=== PATIENT | female | born 1995 | race American Indian/Alaskan Native ===

== ENCOUNTER 2016-10-17 15:17 | Emergency (ER) | payer SELFPAY ==
[2016-10-17] MEDS ORDERED: ZOFRAN IM ONE (15:58)
--- NOTE | 2016-10-17 16:03 | Emergency Department Report ---
Chief Complaint: Abdominal Pain Stated Complaint: VOMITING/FEVER/BODYACHES Time Seen by Provider: 10/17/16 15:59 - HPI History of Present Illness: Patient here reports nausea and vomitting started today. She reports starting her menstrual cycle today and having abdominal pain 07/09. LMP 10/16/2016.Pain to abdominal and lower back cramping. Denies diarrhea. Denies fever but reports chills. Denies any urinary burning or urgency but reports frequency. - ROS Review of Systems: All systems are negative unless stated in Hpi above - Exam Vital Signs: Vital Signs 10/17/16 15:49 Temperature 97.5 F L Pulse Rate 56 L Respiratory 22 Rate Blood Pressure 135/96 O2 Sat by Pulse 100 Oximetry Physical Exam: General: This is a 21-year-old female that is nontoxic in appearance. Abdomen: Tender to palpate in lower abdominal quadrant with positive guarding. Normal bowel sounds. MSE screening note: Focused history and physical exam performed. Due to findings the following was ordered:see mdm ED Medical Decision Making - Medical Decision Making Medical decision making: Patient seen by provider in triage area. Appropriate protocol activated and patient to main ED to be seen by physician. ED Disposition for MSE Condition: Stable Instructions: Abdominal Pain (ED)
[2016-10-17 16:17] LABS: Basophils % (Auto) 0.7 % (0.0-1.8); Eosinophils % (Auto) 0.3 % (0.0-4.3); Hematocrit 41.9 % (30.3-42.9); Hemoglobin 13.8 gm/dl (10.1-14.3); Mean Corpuscular HGB Conc 33 % (30-34); Mean Corpuscular Hemoglobin 29 pg (28-32); Mean Corpuscular Volume 88 fl (79-97); Platelet Count 139 K/mm3 (140-440); Red Blood Count 4.76 M/mm3 (3.65-5.03); Red Cell Distribution Width 15.7 % (13.2-15.2); White Blood Count 5.3 K/mm3 (4.5-11.0)
[2016-10-17 16:33] LABS: Alanine Aminotransferase 12 units/L (7-56); Albumin/Globulin Ratio 1.2 %; Alkaline Phosphatase 42 units/L (35-129); Amylase 81 units/L (27-131); Anion Gap 20 mmol/L; Bilirubin,Total 0.6 mg/dL (0.1-1.2); Blood Urea Nitrogen 10 mg/dL (7-17); Calcium 8.9 mg/dL (8.4-10.2); Carbon Dioxide 21 mmol/L (22-30); Chloride 105.5 mmol/L (98-107); Glucose 92 mg/dL (65-100); Lipase 27 units/L (13-60); Sodium 142 mmol/L (137-145); Total Protein 7.3 g/dL (6.3-8.2)
[2016-10-17 16:35] LABS: Bilirubin,Direct < 0.2 mg/dL (0-0.2); Bilirubin,Indirect 0.4 mg/dL
[2016-10-17 17:55] LABS: Bilirubin,Urine NEG (Negative); Blood,Urine LG (Negative); Ketones,Urine 20 mg/dL (Negative); Leukocyte Esterase,Urine NEG (Negative); Mucus,Urine FEW /HPF; Nitrite,Urine NEG (Negative); Protein,Urine <15 mg/dL mg/dL (Negative); Urobilinogen,Urine < 2.0 mg/dL (<2.0); WBC,Urine < 1.0 /HPF (0.0-6.0)
[2016-10-18] MEDS ORDERED: TYLENOL PO ONE (01:23)
[2016-10-18] MEDS ORDERED: MOTRIN PO ONE (06:34)
[2016-10-18] MEDS ORDERED: NACL 0.9% 1000 ML 1,000 ML IV ONE (07:51)
[2016-10-18] MEDS ORDERED: ZOFRAN IV ONE (07:51)
[2016-10-18] MEDS ORDERED: MORPHINE IV ONE (07:51)
[2016-10-18] MEDS ORDERED: MORPHINE ONE (07:57)
--- NOTE | 2016-10-18 07:57 | Emergency Department Report ---
HPI - General Chief Complaint: Abdominal Pain Time Seen by Provider: 10/17/16 16:09 - HPI HPI: Room 10 The patient is a 21-year-old female presenting with a chief complaint of pelvic cramping. When asked why she came to the emergency department patient states "my cycle made me come." The patient states since 2013 every month she has had severe pelvic pain headaches nausea vomiting with her cycles. The patient states every month during her cycle these symptoms present. 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 The patient states this morning her normal symptoms began which included nausea vomiting or abdominal pain and back pain. The patient gives her pain a score of 12/10 Location: [see above] Duration: Monthly since 2013 Quality: Cramping Severity: 09/08 Modifying factors: Heating Pads do not help Context: [see above] Mode of transportation: [not driving] ED Past Medical Hx - Past Medical History Previous Medical History?: No Additional medical history: anemia - Surgical History Past Surgical History?: No - Family History Family history: no significant - Social History Smoking Status: Never Smoker Substance Use Type: None (denies illicit drug use), Alcohol (occasional) - Medications Home Medications: Home Medications Medication Instructions Recorded Confirmed Last Taken Type Ibuprofen [Motrin 800 MG tab] 800 mg PO Q8HR PRN #30 tablet 07/06/15 Unknown Rx Ondansetron [Zofran Odt] 4 mg PO Q6H #15 tab.rapdis 07/06/15 Unknown Rx HYDROcodone/APAP 5-325 [[place] 1 - 2 each PO Q6HR PRN #14 tablet 10/18/16 Unknown Rx 5/325] Ibuprofen [Motrin 800 MG tab] 800 mg PO Q8HR PRN #30 tablet 10/18/16 Unknown Rx Promethazine [Phenergan TAB] 25 mg PO Q6HR PRN #20 tab 10/18/16 Unknown Rx Promethazine [Phenergan] 25 mg [place] Q6HR PRN #10 supp.rect 10/18/16 Unknown Rx ED Review of Systems ROS: Stated complaint: VOMITING/FEVER/BODYACHES Other details as noted in HPI Comment: All other systems reviewed and negative Constitutional: denies: chills, fever Eyes: denies: eye pain, eye discharge, vision change ENT: denies: ear pain, throat pain Respiratory: denies: cough, shortness of breath, wheezing Cardiovascular: denies: palpitations Endocrine: no symptoms reported Gastrointestinal: abdominal pain, nausea, vomiting Genitourinary: denies: abnormal menses Musculoskeletal: back pain Skin: denies: rash, lesions Neurological: headache Psychiatric: denies: anxiety, depression Hematological/Lymphatic: denies: easy bleeding, easy bruising Physical Exam - Physical Exam Vital Signs: Vital Signs 10/17/16 10/18/16 15:49 01:20 Temperature 97.5 F L 98.3 F Pulse Rate 56 L 62 Respiratory 22 20 Rate Blood Pressure 135/96 Blood Pressure 118/69 [Right] O2 Sat by Pulse 100 100 Oximetry Physical Exam: GENERAL: The patient is well-developed well-nourished female sitting on stretcher not appearing to be in acute distress. [] HEENT: Normocephalic. Atraumatic. Extraocular motions are intact. Patient has moist mucous membranes. NECK: Supple. Trachea midline CHEST/LUNGS: Clear to auscultation. There is no respiratory distress noted. HEART/CARDIOVASCULAR: Regular. There is no tachycardia. There is no gallop rub or murmur. ABDOMEN: Abdomen is soft, with mild suprapubic discomfort. Patient has normal bowel sounds. There is no abdominal distention. SKIN: There is no rash. There is no edema. There is no diaphoresis. NEURO: The patient is awake, alert, and oriented. The patient is cooperative. The patient has normal speech MUSCULOSKELETAL: There is no evidence of acute injury. ED Course Vital Signs 10/17/16 10/18/16 15:49 01:20 Temperature 97.5 F L 98.3 F Pulse Rate 56 L 62 Respiratory 22 20 Rate Blood Pressure 135/96 Blood Pressure 118/69 [Right] O2 Sat by Pulse 100 100 Oximetry ED Medical Decision Making - Lab Data Result diagrams: 10/17/16 16:07 10/17/16 16:07 Laboratory Tests 10/17/16 10/17/16 10/17/16 16:07 16:07 16:07 WBC 5.3 RBC 4.76 Hgb 13.8 Hct 41.9 MCV 88 MCH 29 MCHC 33 RDW 15.7 H Plt Count 139 L Lymph % (Auto) 16.6 [place] % (Auto) 6.1 Eos % (Auto) 0.3 Baso % (Auto) 0.7 Lymph # 0.9 L [place] # 0.3 Eos # 0.0 Baso # 0.0 Seg Neutrophils % 76.3 H Seg Neutrophils # 4.0 Sodium 142 Potassium 4.0 Chloride 105.5 Carbon Dioxide 21 L Anion Gap 20 BUN 10 Creatinine 0.8 Estimated GFR > 60 BUN/Creatinine Ratio 12.50 Glucose 92 Calcium 8.9 Total Bilirubin 0.6 Direct Bilirubin < 0.2 Indirect Bilirubin 0.4 AST 18 ALT 12 Alkaline Phosphatase 42 Total Protein 7.3 Albumin 4.0 Albumin/Globulin Ratio 1.2 Amylase 81 Lipase 27 HCG, Qual Negative Urine Color Urine Turbidity Urine pH Ur Specific [place] Urine Protein Urine Glucose (UA) Urine Ketones Urine Blood Urine Nitrite Urine Bilirubin Urine Urobilinogen Ur Leukocyte Esterase Urine WBC (Auto) Urine RBC (Auto) U Epithel Cells (Auto) Urine Mucus 10/17/16 17:00 WBC RBC Hgb Hct MCV MCH MCHC RDW Plt Count Lymph % (Auto) [place] % (Auto) Eos % (Auto) Baso % (Auto) Lymph # [place] # Eos # Baso # Seg Neutrophils % Seg Neutrophils # Sodium Potassium Chloride Carbon Dioxide Anion Gap BUN Creatinine Estimated GFR BUN/Creatinine Ratio Glucose Calcium Total Bilirubin Direct Bilirubin Indirect Bilirubin AST ALT Alkaline Phosphatase Total Protein Albumin Albumin/Globulin Ratio Amylase Lipase HCG, Qual Urine Color Yellow Urine Turbidity Clear Urine pH 7.0 Ur Specific [place] 1.014 Urine Protein <15 mg/dl Urine Glucose (UA) Neg Urine Ketones 20 Urine Blood Lg Urine Nitrite Neg Urine Bilirubin Neg Urine Urobilinogen < 2.0 Ur Leukocyte Esterase Neg Urine WBC (Auto) < 1.0 Urine RBC (Auto) 11.0 U Epithel Cells (Auto) 1.0 Urine Mucus Few - Differential Diagnosis dysmenorrhea, ectopic Critical care attestation.: If time is entered above; I have spent that time in minutes in the direct care of this critically ill patient, excluding procedure time. ED Disposition Clinical Impression: Dysmenorrhea Disposition: DISCHARGED TO HOME OR SELFCARE Is pt being admited?: No Does the pt Need Aspirin: No Condition: Stable Instructions: Abdominal Pain (ED), Dysmenorrhea (ED) Additional Instructions: Return to the emergency department immediately should you develop worsening symptoms, fever, inability to tolerate food or liquid or any other concerns. Prescriptions: HYDROcodone/APAP 5-325 [[place] 5/325] 1 - 2 each PO Q6HR PRN #14 tablet PRN Reason: Pain Ibuprofen [Motrin 800 MG tab] 800 mg PO Q8HR PRN #30 tablet PRN Reason: Pain Promethazine [Phenergan TAB] 25 mg PO Q6HR PRN #20 tab PRN Reason: Nausea Promethazine [Phenergan] 25 mg RI Q6HR PRN #10 supp.rect PRN Reason: Vomiting Referrals: JAYY ORANTES MD [Staff Physician] - [facility] (Dr. Orantes is an MAID SUPERVISOR. It is very important that you follow-up with her for further evaluation) NATALIA GORDON MD [Staff Physician] - 3-5 Days (Dr. Gordon is a neurologist. Please follow up with him for further evaluation) JUDAH TRACY MD [Staff Physician] - 3-5 Days (Dr. Tracy is a primary physician. Please follow up with him to be established as a patient) [facility] [Outside] - 3-5 Days Time of Disposition: 08:11
[2016-10-18 09:40] VITALS: BP 122/82
== END 2016-10-18 09:36 | disposition home or self-care (01) ==
LOC: ED 15:17
DX: N94.6 Dysmenorrhea, unspecified (principal); D64.9 Anemia, unspecified
CPT/HCPCS: 36415; 80048; 80074; 81001; 82150; 83690; 84703; 85025; 96361; 96372; 96374; 96375; 99283; J2270; J2405; J7030

== ENCOUNTER 2021-04-26 21:39 | Emergency (ER) | payer MEDICAID ==
[2021-04-26 22:08] VITALS: BP 127/64
[2021-04-27] MEDS ORDERED: ACETAMINOPHEN 500 MG TAB PO ONE (00:08)
[2021-04-27] MEDS ORDERED: SODIUM CHLORIDE 0.9% 1000 ML 1,000 ML IV ONE (01:50)
[2021-04-27] MEDS ORDERED: diphenhydrAMINE 50 MG/ML VIAL IV STA (01:50)
[2021-04-27] MEDS ORDERED: METOCLOPRAMIDE 10 MG/2 ML INJ IV STA (01:50)
[2021-04-27 02:19] LABS: Basophils % (Auto) 0.3 % (0.0-1.8); Eosinophils # (Auto) 0.1 K/mm3 (0.0-0.4); Eosinophils % (Auto) 0.8 % (0.0-4.3); Hematocrit 34.7 % (30.3-42.9); Hemoglobin 11.7 gm/dl (10.1-14.3); Lymphocytes # (Auto) 1.6 K/mm3 (1.2-5.4); Lymphocytes % (Auto) 23.5 % (13.4-35.0); Mean Corpuscular HGB Conc 34 % (30-34); Mean Corpuscular Volume 94 fl (79-97); Monocytes # (Auto) 0.5 K/mm3 (0.0-0.8); Monocytes % (Auto) 7.8 % (0.0-7.3); Platelet Count 187 K/mm3 (140-440); Red Blood Count 3.68 M/mm3 (3.65-5.03); Red Cell Distribution Width 13.9 % (13.2-15.2)
[2021-04-27 02:35] LABS: Blood Urea Nitrogen 8 mg/dL (7-17); Calcium 9.3 mg/dL (8.4-10.2); Hemolysis Index 14
[2021-04-27 02:37] LABS: Bacteria,Urine 1+ /HPF (Negative); Bilirubin,Urine NEG (Negative); Blood,Urine NEG (Negative); Color,Urine Yellow (Yellow); Mucus,Urine FEW /HPF; Protein,Urine <15 mg/dL mg/dL (Negative); Urobilinogen,Urine < 2.0 mg/dL (<2.0)
[2021-04-27 02:53] LABS: BUN/Creatinine Ratio 16
--- NOTE | 2021-04-27 03:09 | Emergency Department Report ---
ED Headache HPI - General Chief Complaint: Headache Stated Complaint: HEADACHE/20WKS Time Seen by Provider: 04/27/21 01:20 - History of Present Illness Initial Comments: 35-year-old -[place] female which presents emerged department complaining of having headache/few days not responding to Tylenol. Patient reports no blurred vision no loss consciousness, no neck pain no fever, chills, sweats. Has had some vague nausea which may be associated with her . She reports no chest pain, no palpitations, no trauma Timing/Duration: decreasing (At the utilization of Tylenol) Quality: moderate Head Injury Location: frontal, parietal Recent Head Trauma: other () Associated Symptoms: denies: denies symptoms, confusion, facial pain, fever/chills, nausea/vomiting, nasal congestion, sinus infection, stiff neck, vision changes Allergies/Adverse Reactions: Allergies tomato Allergy (Verified 07/06/15 16:26) Anaphylaxis Home Medications: Ambulatory Orders Ibuprofen [Motrin 800 MG tab] 800 mg PO Q8HR PRN #30 tablet 07/06/15 Ondansetron [Zofran Odt] 4 mg PO Q6H #15 tab.rapdis 07/06/15 HYDROcodone/APAP 5-325 [[place] 5/325] 1 - 2 each PO Q6HR PRN #14 tablet 10/18/16 Ibuprofen [Motrin 800 MG tab] 800 mg PO Q8HR PRN #30 tablet 10/18/16 Promethazine [Phenergan TAB] 25 mg PO Q6HR PRN #20 tab 10/18/16 Promethazine [Phenergan] 25 mg [place] Q6HR PRN #10 supp.rect 10/18/16 ED Review of Systems ROS: Stated complaint: HEADACHE/20WKS Other details as noted in HPI Comment: All other systems reviewed and negative ED Past Medical Hx - Past Medical History Previous Medical History?: Yes Additional medical history: anemia - Surgical History Past Surgical History?: No - Social History Smoking Status: Never Smoker Substance Use Type: None (denies illicit drug use), Alcohol (occasional) - Medications Home Medications: Home Medications Medication Instructions Recorded Confirmed Last Taken Type Ibuprofen [Motrin 800 MG tab] 800 mg PO Q8HR PRN #30 tablet 07/06/15 Unknown Rx Ondansetron [Zofran Odt] 4 mg PO Q6H #15 tab.rapdis 07/06/15 Unknown Rx HYDROcodone/APAP 5-325 [[place] 1 - 2 each PO Q6HR PRN #14 tablet 10/18/16 Unknown Rx 5/325] Ibuprofen [Motrin 800 MG tab] 800 mg PO Q8HR PRN #30 tablet 10/18/16 Unknown Rx Promethazine [Phenergan TAB] 25 mg PO Q6HR PRN #20 tab 10/18/16 Unknown Rx Promethazine [Phenergan] 25 mg [place] Q6HR PRN #10 supp.rect 10/18/16 Unknown Rx ED Physical Exam - General Limitations: No Limitations General appearance: alert, in no apparent distress - Head Head exam: Present: atraumatic, normocephalic - Eye Eye exam: Present: normal appearance, PERRL Pupils: Present: normal accommodation - ENT ENT exam: Present: normal exam, mucous membranes moist - Neck Neck exam: Present: normal inspection, full ROM - Respiratory Respiratory exam: Present: normal lung sounds bilaterally. Absent: respiratory distress, wheezes, rales, chest wall tenderness, accessory muscle use - Cardiovascular Cardiovascular Exam: Present: regular rate, normal rhythm. Absent: systolic murmur, diastolic murmur, rubs, gallop - GI/Abdominal GI/Abdominal exam: Present: soft, normal bowel sounds. Absent: distended, tenderness - Extremities Exam Extremities exam: Present: normal inspection - Back Exam Back exam: Present: normal inspection. Absent: CVA tenderness (R), CVA tenderness (L), paraspinal tenderness - Neurological Exam Neurological exam: Present: alert, oriented X3, CN II-XII intact, normal gait - Psychiatric Psychiatric exam: Present: normal affect, normal mood - Skin Skin exam: Present: warm, dry, intact, normal color. Absent: rash ED Course Vital Signs 04/26/21 04/27/21 22:05 00:25 Temperature 99.0 F Pulse Rate 78 Respiratory 14 16 Rate Blood Pressure 127/64 O2 Sat by Pulse 97 Oximetry ED Medical Decision Making - Lab Data Result diagrams: 04/27/21 01:55 04/27/21 01:55 - Medical Decision Making This patient presents with a headache most consistent with migraine. Differential diagnosis includes migraine versus tension type headache. No headache red flags. Neurologic exam without evidence of meningismus, focal neurologic findings.Based on the patient's history and physical there is very low clinical suspicion for significant intracranial pathology. The headache was NOT sudden onset, NOT maximal at onset, there are NO neurologic findings, the patient does NOT have a fever, the patient does NOT have any jaw claudication, the patient does NOT endorse a clotting disorder, patient DENIES any trauma or eye pain and the headache is NOT associated with dizziness or ataxia. Pr esentation not consistent with acute intracranial bleed to include SAH (lack of risk factors, headache history). 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 Presentation not consistent with other acute, emergent causes of headache at this time. Plan to treat symptomatically with pain medication. No indication for imaging/LP at this time. Plan: pain medication, , serial reassessment HEADACHE IN This patient presents with headache of rapid onset. Etiology is unclear but includes possible preeclampsia, HELLP, SAH or other ICH. Considered, but think unlikely, CVT, Watermans syndrome, carotid dissection. Plan to work up with basic labs, UA to screen for proteinuria, consider head CT, pain control, reassess. CT scan was obtained pain resolved no complications Critical care attestation.: If time is entered above; I have spent that time in minutes in the direct care of this critically ill patient, excluding procedure time. ED Disposition Clinical Impression: Cephalgia Disposition: DC-01 TO HOME OR SELFCARE Is pt being admited?: No Does the pt Need Aspirin: No Condition: Stable Instructions: Migraine Headache, [id number] Additional Instructions: Please follow-up with your [facility]IC[facility] for reevaluation of your your headaches which may correlate with your . Please also let your doctor of your emergency room visit this evening. At the time of discharge her headache was resolved with the utilization of Benadryl and Reglan both category B medications Referrals: [facility] [Provider Group] - 3-5 Days
== END 2021-04-27 03:42 | disposition home or self-care (01) ==
LOC: ED 21:39
DX: M54.2 Cervicalgia (principal); R51.9 Headache, unspecified
CPT/HCPCS: 36415; 80048; 81001; 85025; 96361; 96374; 96375; 99283; J1200; J2765; J7030